=== PATIENT | male | born 1995 | race Caucasian/White ===

== ENCOUNTER 2023-09-09 20:03 | Emergency (ER) | payer BC ==
[~2023-09-09] VITALS: Ht 177.8 cm; Wt 83.9 kg
[2023-09-09 20:13] VITALS: BP 116/68; PULSE 136; RESP 15; TEMP 98.1; O2SAT 95
[2023-09-09 20:25] VITALS: O2SAT 99
[2023-09-09] MEDS: NACL 0.9% 2,000 ML IV ONE (20:41)
[2023-09-09 20:49] LABS: BASOPHILS # (AUTO) 0.1 K/uL (0.00-0.22); BASOPHILS % (AUTO) 0.5 % (0.0-2.0); HEMOGLOBIN 14.3 g/dL (12.0-18.0); LYMPHOCYTES # (AUTO) 1.9 K/uL (2.0-11.5); LYMPHOCYTES % (AUTO) 10.8 % (20.5-51.1); MEAN CORPUSCULAR HEMOGLOBIN 30 pg (27-31); MEAN CORPUSCULAR HGB CONC 35 g/dL (33-37); MEAN CORPUSCULAR VOLUME 85.2 fL (80-94); MONOCYTES # (AUTO) 1.7 K/uL (0.8-1.0); MONOCYTES % (AUTO) 9.7 % (1.7-9.3); NEUTROPHILS # (AUTO) 14.2 K/uL (1.8-7.7); PLATELET COUNT (AUTO) 293 K/uL (140-450); RED BLOOD CELL COUNT(AUTO) 4.82 MIL/uL (4.20-6.10); RED CELL DISTRIBUTION WIDTH 13.3 % (11.6-13.7)
[2023-09-09 20:58] LABS: ANION GAP 14.3 (8-16); CALCIUM 9.2 mg/dL (8.5-10.1); CARBON DIOXIDE 27.3 mmol/L (21-32); CREATININE 1.2 mg/dL (0.6-1.3); POTASSIUM 3.6 mmol/L (3.5-5.1)
[2023-09-09 21:02] LABS: INR 1.02 (0.8-1.2); PROTHROMBIN TIME 10.7 secs (10.8-13.4)
[2023-09-09] MEDS: KETOROLAC 30 MG/ML VIAL IVP ONE (21:19)
[2023-09-09 22:26] LABS: FLU A ANTIGEN negative (NEGATIVE); FLU B ANTIGEN NEGATIVE (NEGATIVE)
[2023-09-09 23:27] VITALS: BP 101/57; PULSE 89; RESP 19; TEMP 97.9; O2SAT 99
== END 2023-09-09 23:27 | disposition home or self-care (01) ==
LOC: MED 20:03
DX: R50.9 Fever, unspecified (principal); Z20.822 Contact with and (suspected) exposure to COVID-19; R00.0 Tachycardia, unspecified; E86.0 Dehydration; D72.829 Elevated white blood cell count, unspecified; Z79.899 Other long term (current) drug therapy; Z88.1 Allergy status to other antibiotic agents
CPT/HCPCS: 36415; 71045; 80048; 83880; 84484; 85025; 85610; 85730; 87426; 87804; 93005; 96361; 96374; 99285; J1885; J7030

== ENCOUNTER 2023-09-14 15:12 | Emergency (ER) | payer BC ==
[~2023-09-14] VITALS: Ht 177.8 cm; Wt 79.4 kg
[2023-09-14 15:17] VITALS: BP 128/78; PULSE 120; RESP 18; TEMP 98.2; O2SAT 96
[2023-09-14] MEDS: NACL 0.9% 1,000 ML IV ONE (15:47)
[2023-09-14] MEDS ORDERED: ACET-503 PO (15:49)
[2023-09-14] MEDS ORDERED: PRED20TA5 PO (15:49)
[2023-09-14] MEDS ORDERED: IBUP-2213 PO (15:49)
[2023-09-14] MEDS ORDERED: AZIT250T4 PO (15:49)
[2023-09-14] MEDS: KETOROLAC 30 MG/ML VIAL IVP ONE (15:51)
[2023-09-14 16:37] VITALS: BP 127/81; PULSE 102; RESP 16; TEMP 36.78072; O2SAT 97
== END 2023-09-14 16:38 | disposition home or self-care (01) ==
LOC: MED 15:12
DX: J02.0 Streptococcal pharyngitis (principal); R00.2 Palpitations; R00.0 Tachycardia, unspecified; Z88.0 Allergy status to penicillin
CPT/HCPCS: 93005; 96361; 96374; 99283; J1885; J7030